=== PATIENT | female | born 1985 | race African-American/Black ===

== ENCOUNTER 2018-09-27 12:53 | Emergency (ER) | payer MEDICAID ==
[~2018-09-27] VITALS: Ht 160 cm; Wt 86.2 kg
[2018-09-27 13:19] VITALS: BP 136/92
[2018-09-27 13:47] LABS: APPEARANCE,URINE SLIGHTLY CLOUDY; BILIRUBIN, URINE NEGATIVE (NEGATIVE); COLOR,URINE PALE YELLOW; GLUCOSE, URINE (UA) NEGATIVE (NEGATIVE); KETONES,URINE NEGATIVE (NEGATIVE); LEUKOCYTE ESTERASE ,URINE 1+ (NEGATIVE); NITRITE,URINE NEGATIVE (NEGATIVE); PH,URINE 6 (4.5-8.0); PROTEIN,URINE NEGATIVE (NEGATIVE); UROBILINOGEN,URINE NORMAL MG/DL (0.0-1.0)
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
[2018-09-27] MEDS ORDERED: traMADol 50mg tab ORAL ONE (15:00)
[2018-09-27] MEDS ORDERED: Ketorolac 30mg Inj IM ONE (15:30)
[2018-09-27] MEDS ORDERED: Isovue-300 100ml vial INJ PRN (15:45)
[2018-09-27] MEDS ORDERED: IBUPROFEN800 MG ORAL (15:54)
[2018-09-27] MEDS ORDERED: ROBAXIN-750750 MG PO (15:54)
[2018-09-27 16:06] VITALS: BP 128/86
--- NOTE | 2018-09-27 18:42 | Diagnostic Imaging Report ---
Indication: Chest pain Technique: One view of the chest Comparison: none Findings: Lungs and pleural spaces are clear. Heart size is normal Impression: No acute process
== END 2018-09-27 16:11 | disposition home or self-care (01) ==
LOC: EMR 13:30
DX: M54.6 Pain in thoracic spine (principal); M62.830 Muscle spasm of back; F41.9 Anxiety disorder, unspecified
CPT/HCPCS: 71045; 81003; 81025; 96372; 99283; J1885